=== PATIENT | male | born 1980 | race Caucasian/White ===

== ENCOUNTER → 2018-07-21 | Outpatient (CLI) | payer BC ==
[~2018-07-21] MED LIST: AMOXICILLIN 50500 MG PO; NO HOME MEDICATIONS; NORCO 325 MG-51 TAB PO; NORCO 325 MG-7.1 TAB PO
== END ==
LOC: COL.RAD 13:05
DX: M24.10 Other articular cartilage disorders, unspecified site (principal); M25.462 Effusion, left knee